=== PATIENT | male | born 1935 ===

== ENCOUNTER 2023-10-05 17:55 | Emergency (ER) | payer OTHER ==
[~2023-10-05] VITALS: Ht 165.1 cm; Wt 72.6 kg
[2023-10-05 19:15] LABS: HEMOGLOBIN 14.1 g/dL (13-16.00); MEAN CELL VOLUME 93.9 fL (80.0-100.00); MEAN CORPUSCULAR HEMOGLOBIN 32.4 pg (27.00-32.0); MEAN CORPUSCULAR HGB CONC 34.5 g/dl (32.0-36.0); PLATELET COUNT 302 K/uL (150-450); RED BLOOD COUNT 4.36 M/uL (4.00-6.00); RED CELL DISTRIBUTION WIDTH 14.2 % (11.5-14.5)
[2023-10-05 20:05] LABS: INR 1.13; PARTIAL THROMBOPLASTIN TIME 29.9 SECONDS (22.0-34.0); PROTHROMBIN TIME 12.2 SECONDS (9.0-11.5)
[2023-10-05 20:08] LABS: CALCIUM 9.1 mg/dL (8.5-10.1); CREATININE SERUM 1.06 mg/dL (0.70-1.30); GFR 65.93; POTASSIUM 3.99 mEq/L (3.5-5.1)
[2023-10-05 21:28] LABS: ABG pCO2 16.2 mmHg (35-45); BASE EXCESS -2.2 mmol/l; BICARBONATE 15.9 mmol/l (23-25); SaO2 99.4 %; Tco2 16.4 mmol/l; allen test SATISFACTORY; o2 21 %; puncture site RADIAL RIGHT
[2023-10-05] MEDS ORDERED: ACETAMINOPHEN 500 MG GEL..CAP PO ONE (22:15)
== END 2023-10-06 01:24 | disposition home or self-care (01) ==
LOC: ER 17:55
PROVIDERS: Emergency Medicine
DX: U07.1 COVID-19 (principal); J98.8 Other specified respiratory disorders; B97.89 Other viral agents as the cause of diseases classified elsewhere; R53.1 Weakness; Z91.041 Radiographic dye allergy status